=== PATIENT | female | born 1985 | race Caucasian/White ===

== ENCOUNTER 2017-09-18 20:56 | Emergency (ER) | payer MEDICAID ==
[~2017-09-18] VITALS: Ht 165.1 cm; Wt 59.0 kg
--- NOTE | 2017-09-18 21:28 | NUR ---
Patient walked into ER c/o superficail lac on left hand. Patient states she was changing toilet when lac ocurred. Came in requesting tetanus vaccine
--- NOTE | 2017-09-18 21:30 | NUR ---
Dr Ingram into eval patient
[2017-09-18] MEDS ORDERED: NEOMY/BACITRA/POLYMYXIN B OINT UD PACKET TP ONE ×2 (21:44→21:45)
[2017-09-18] MEDS ORDERED: TDAP DIPH,PERTUSS,TET VAC/PF 0.5 ML DISP.SYRIN IM ONE ×2 (21:44→21:45)
[2017-09-18 21:55] VITALS: BP 125/88
--- NOTE | 2017-09-18 21:55 | NUR ---
Patient discharged to home in stable conditon. Written and verbal after care instructions given. Patient verbalizes understanding of instructions. Walked out of ER with no distress noted
== END 2017-09-18 21:56 | disposition home or self-care (01) ==
LOC: ER 21:00
DX: S61.412A Laceration without foreign body of left hand, initial encounter (principal); W26.8XXA Contact with other sharp object(s), not elsewhere classified, initial encounter; Y93.89 Activity, other specified; Y92.89 Other specified places as the place of occurrence of the external cause; Y99.8 Other external cause status
CPT/HCPCS: 90471; 90715; 99283; A4663